=== PATIENT | male | born 1980 | race African-American/Black ===

== ENCOUNTER 2025-04-05 16:46 | Emergency (ER) | payer OTHER, SELFPAY ==
--- NOTE | ~2025-04-05 | XR_ITS ---
EXAMINATION: XR toe 2nd RT min 2V, 04/05/2025 17:06 DIRECTOR BROADCAST HISTORY: injury COMPARISON: No comparisons available. Findings: There is a slightly displaced fracture of the proximal aspect of the distal phalanx with intra-articular extension No significant degenerative changes. Soft tissues unremarkable. Impression: Fracture detailed above Reviewed, dictated and finalized at location P. CTOR BROADCAST Impression: Fracture detailed above
[2025-04-05 16:51] VITALS: BP 203/109; PULSE 113; RESP 16; TEMP 36.5; O2SAT 100
--- NOTE | 2025-04-05 17:49 | ED.LOWEXIN ---
HPI - Extremity Injury (Lower) General Chief Complaint: Extremity Injury, Lower Stated Complaint: Right 2nd toe injury Time Seen by Provider: 04/05/25 17:53 Source: patient Mode of arrival: ambulatory Limitations: no limitations History of Present Illness HPI Narrative: This is a 45-year-old male that presents to the emergency department for right 2nd toe injury. Reports he missed a step and injured the toe. He did not hit his head or lose consciousness. No other injuries or focal areas of pain. Related Data Allergies Allergy/AdvReac Type Severity Reaction Status Date / Time No Known Allergies Allergy Verified 04/05/25 17:52 Review of Systems Review of Systems: All systems reviewed & are unremarkable except as noted in HPI and below Exam Narrative: GENERAL: Well-appearing, well-nourished, and in no acute distress. HEAD: Normocephalic, atraumatic. EYES: EOMI. EXTREMITIES: No obvious deformity. Edema to the 2nd toe distal phalanx. SKIN: Warm, dry, no rash. NEURO: No focal deficits. Alert and oriented x3. PSYCH: Normal mood and affect Course Vital Signs Vital signs: Vital Signs Temperature 97.7 F 04/05/25 16:51 Pulse Rate 113 H 04/05/25 16:51 Respiratory Rate 16 04/05/25 16:51 Blood Pressure 203/109 H 04/05/25 16:51 Pulse Oximetry 100 04/05/25 16:51 Temperature 97.7 F 04/05/25 16:51 Pulse Rate 111 H 04/05/25 17:55 Respiratory Rate 18 04/05/25 17:55 Blood Pressure 172/112 H 04/05/25 17:55 Pulse Oximetry 99 04/05/25 17:55 Procedures Orthopedic Splinting/Casting Injury #1: Splinting/Casting Date: 04/05/25 Side: right Lower Extremity Injury Location: toe Lower Extremity Immobilizer: caryn tape Pre-Procedure Neuro Vascular Exam: normal Post-Procedure Neuro Vascular Exam: normal Other Orthopedic Equipment: other (Postop shoe) MDM - Extremity Injury (Lower) MDM Narrative Medical decision making narrative: Patient presents to the emergency department for right 2nd toe injury. X-ray showing distal phalanx fracture. Patient caryn taped and given postop shoe. Will be given follow-up with Podiatry Differential Diagnosis Differential diagnosis: Likely fracture of toe and other (Contusion) Imaging Data Radiologist's impression: ITS Impressions Toe X-Ray 04/05/25 17:18 Impression: Fracture detailed above Critical Care Time Critical Care Time Critical Care Time: No Discharge Plan Discharge Clinical Impression: Elevated blood pressure reading Fracture of toe Qualifiers: Encounter type: initial encounter Toe: unspecified toe Fracture type: closed Fracture alignment: displaced Laterality: right Qualified Code(s): S92.911A - Unspecified fracture of right toe(s), initial encounter for closed fracture Patient Disposition: Home Condition: Stable Instructions: Toe Fracture (ED), Hypertension (ED) Additional Instructions: Return to the ER if you experience fever, redness and swelling of your extremity, numbness or any other symptoms that are concerning to you Caryn tape the toe. Ice and elevate extremity. [id number] pain medication as needed. Prescribed pain medication as needed Follow up with Podiatry for further care. Your blood pressure is elevated today. You need to see a primary doctor for follow-up Patient Language: Ghanaian Prescriptions: New hydrocodone-acetaminophen 5-325 mg tablet 1 tablet PO Q6H PRN (Reason: pain) Qty: 14 0RF Follow-up/Referrals: Alana Garcia DPM [Physician, Podiatry] PHYSICIAN,PASSENGER LOCOMOTIVE ENGINEER [Primary Care Provider, Internal Medicine] Prashant Suarez MD [Physician, Family Practice]
[2025-04-05 17:55] VITALS: BP 172/112; PULSE 111; RESP 18; O2SAT 99
--- OUTSIDE RECORDS SUMMARY | 2025-04-05 18:32 | XMS_ITS | Clinical Summary ---
Author Organization [facility] [employer] Address [address] [place] [address] Care Team Providers Care Scooping Machine Tender Name Role Phone Unavailable Primary Care Provider Unavailabl e Source Comments [facility],non-owned Affiliates and Associated Physician Practices is amultiple site organization consisting of ambulatory clinics and hospital sitesin [place], [place], [place] and [place]. This disclosure is being madepursuant to the Care Everywhere program and may not contain all information available regarding this patient. Last updated 18.[facility] [employer] Allergies Active Allergy Reactions Criticality Noted Date Comments Cyclobenzaprine GI Discomfort 12/12/2020 Vomiting and headache Methocarbamol Psychiatric Medium 10/24/2020 halucinations Medications * Be aware that medications may not be up to date on this document. Always verify current medications with the patient. 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 Gender Identity Not on file Sexual Orientation Not on file Last Filed Vital Signs Vital Sign Reading Time Taken Comments Blood Pressure 143/84 11/29/2020 12:44 PM CDT Pulse 90 11/29/2020 12:44 PM CDT Temperature 36.9 C (98.5 F) 11/29/2020 8:37 AM CDT Respiratory Rate 18 11/29/2020 12:44 PM CDT Oxygen Saturation 98% 11/29/2020 12:44 PM CDT Inhaled Oxygen Concentration - - Weight 61.2 kg (135 lb) 12/12/2020 2:42 PM CDT Height 175.3 cm (5' 9) 12/12/2020 2:42 PM CDT Body Mass Index 19.94 12/12/2020 2:42 PM CDT Plan of Treatment Health Maintenance Due Date Last Done Comments COLOGUARD (AGES 45-75) - COL ON CA SCREENING 1979 COLON MONITORING 1979 COLONOSCOPY - COLON CA SCREENING 1979 CT COLONOGRAPHY - COLON CA SCREENING 1979 Colorectal Cancer Screening 1979 FIT - COLON CA SCREENING 1979 FLEX SIG - COLON CA SCREENING 1979 LIPID TESTING 1979 HIV SCREENING 1994 HEPATITIS C SCREENING 02/19/1997 DTAP/TDAP/TD VACCINES (1 - Tdap) 1998 HEPATITIS B VACCINE (1 of 3 - 19+ 3-dose series) 1998 DEPRESSION SCREENING 05/13/2024 COVID-19 VACCINE (1 - 2024-2 6 season) 2025 INFLUENZA VACCINE (#1) 2025 ZOSTER VACCINE (1 of 2) 2029 HIB VACCINE Aged Out No longer eligi ble based on patient's age to complete this topic HPV VACCINE Aged Out No longer eligi ble based on patient's age to complete this topic MENINGOCOCCAL (Group B) VACC INE SHARED DECISION-MAKING Aged Out No longer eligibl e based on patient's age to complete this topic MENINGOCOCCAL GROUPS A/C/Y/W VACCINE Aged Out No longer eligible b ased on patient's age to complete this topic PNEUMOCOCCAL VACCINE Aged Out No long er eligible based on patient's age to complete this topic Insurance [employer] [address]
--- OUTSIDE RECORDS SUMMARY | 2025-04-05 18:32 | XMS_ITS | Encounter Summary ---
Author Organization [facility] Address [address] [place] [address] Care Team Providers Care Major Donor Coordinator Name Role Phone Unavailable Primary Care Provider Unavailabl e Encounter Details Date Type Department Care Team (Late st Contact Info) Description 10/25/2020 Telephone [facility] [address] [place] [address] Grazyna Mercado PA No Information available Social History Tobacco Use Types Packs/Day Years Used Date Smoking Tobacco: Every Day Cigars Smokeless Tobacco: Never Comments:2 per day Alcohol Use Standard Drinks/Week Comments Yes 4 (1 standard drink = 0.6 oz pur e alcohol) Couple times a week Sex and Gender Information Value Date Recorded Sex Assigned at Not on file 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
--- OUTSIDE RECORDS SUMMARY | 2025-04-05 18:32 | XMS_ITS | Clinical Summary ---
Author Organization [facility] Address [address] [place] [address] Care Team Providers Care Wall Insulation Sprayer Name Role Phone Teodora Jerome Primary Care Provider [phone] Allergies Active Allergy Reactions Criticality Noted Date Comments Cyclobenzaprine GI Upset 12/12/2020 Vomiting and headache Methocarbamol Hallucinations Medium 10/24/2020 halucinations Medications Naproxen Sodium (ALEVE OR) Active Active Problems Problem Noted Date Diagnosed Date Body mass index (BMI) of 20.0-20.9 in adult 11/2022 Cigar smoker 04/18/2023 Elevated blood pressure read ing in office with white coat syndrome, without diagnosis of hypertension 04/18/2023 Proteinuria, unspecified type 04/18/2023 Family history of diabetes mellitus (DM) 023 Vitamin D deficiency, unspecified 04/18/2023 Chronic bilateral low back pain 03/09/2021 Encounters Date Type Department Care Team Description 03/08/2025 Results Follow-Up [facility] [address] [phone] Teodora Jerome FNP PROSTATE SPECIFIC ANTIGEN,SCREENING, MAGNESIUM, FOLIC ACID SERUM, Additional followed-up results: 8 02/08/2025 3:20 PM CDT Office Visit [facility] [address] [phone] Teodora Jerome FNP Physical (Patient presenting to the office today for routine physical - reports no new concerns ) 02/08/2025 Travel from Last 3 Months Immunizations Immunization Administration Dates Next Due Dtp 10/05/1983,09/10/1980,1979 ,1979,1979 MMR 12/12/1992,06/03/1980 Opv 10/05/1983,09/10/1980,1979 ,1979,1979 Polio Opv (Generic) 10/05/1983,09/10/1980,1979,1979,1979 Family History Medical History Relation Comments Alcohol Abuse Father Diabetes Mother Relation Status Comments Father Mother Alive Social History Tobacco Use Types Packs/Day Years Used Date Smoking Tobacco: Every Day Cigarettes 0.5 25 Cigars Smokeless Tobacco: Never Tobacco Cessation:Ready to Q uit: Yes; Counseling Given: Yes Comments:Patient is kind of ready to quit but not fully (02/08/2025) Alcohol Use Standard Drinks/Week Comments Yes 8.3 (1 standard drink = 0.6 oz p ure alcohol) OCCASIONALLY PHQ-2 Answer Date Recorded Patient Health Questionnaire-2 Score 0 02/08/2025 Sex and Gender Information Value Date Recorded Sex Assigned at Male 02/08/2025 3:23 PM CDT Legal Sex Male 8:24 PM CDT Gender Identity Not on file Sexual Orientation Not on file Last Filed Vital Signs Vital Sign Reading Time Taken Comments Blood Pressure 164/98 02/08/2025 3:56 PM CDT Pulse 113 02/08/2025 3:30 PM CDT Temperature 37.5 C (99.5 F) 02/08/2025 3:30 PM CDT Respiratory Rate 18 02/08/2025 3:30 PM CDT Oxygen Saturation 98% 02/08/2025 3:30 PM CDT Inhaled Oxygen Concentration - - Weight 53.8 kg (118 lb 9.6 oz) 02/08/2025 3:30 P M CDT Height 172.7 cm (5' 8) 02/08/2025 3:30 PM CDT Body Mass Index 18.03 02/08/2025 3:30 PM CDT Plan of Treatment Upcoming Encounters Date Type Department Care Team (Late st Contact Info) Description 04/09/2025 7:40 AM MARINE OPERATIONS COORDINATOR Laboratory Only [facility] Family & Internal Medicine - [address] [phone] Teodora Jerome, PAPER MACHINE OPERATOR [address] [place] [address] Health Maintenance Due Date Last Done Comments Hepatitis B Vaccines (1 of 3 - 19+ 3-dose series) 1998 Annual Physical 04/18/2024 04/18/2023, 02/06/2021 Influenza Adult (#1) 2025 Colorectal Cancer Screening Colonoscopy (10 Years) 08/08/2025 Postponed from 1979 (Patient Refused) COVID-19 Vaccine (3 - season) 2026 04/29/2021, 04/08/2021 Postponed from 01/11/2025 (Future Appointment) DTaP, Tdap and Td Vaccines (1 - Tdap) 02/08/2026 10/05/1983, 09/10/1980, 1979, Additional history exists Postponed from 1998 (Patient Refused) Pneumococcal Vaccine: Pediatrics (0 to 5 Years) and At-Risk Patients (6 to 49 Years) (1 of 2 - PCV) 02/08/2026 Postponed from 1998 (Patient Refused) Hepatitis C Completed 04/30/2023 PHQ-2 (Physician [place]) Completed 02/08/2025 Hepatitis A Vaccines Aged Out No long er eligible based on patient's age to complete this topic Meningococcal B Vaccine Aged Out No l onger eligible based on patient's age to complete this topic Meningococcal Vaccine Aged Out No blayne tyrel eligible based on patient's age to complete this topic RSV Immunizations Under 20 Months Aged Out No longer eligible based on patient's age to complete this topic Procedures Procedure Name Priority Date/Time Associated Diagnosis Comments CBC W/DIFF AUTOMATED Routine 03/06/2025 10:14 AM CDT Elevated blood pressure reading in office with white coat syndrome, without diagnosis of hypertension Underweight with body mass index (BMI) less than 18.5 TSH W/REFLEX Routine 03/06/2025 10:14 AM CDT Elevated blood pressure reading in office with white coat syndrome, without diagnosis of hypertension Underweight with body mass index (BMI) less than 18.5 LIPID PANEL Routine 03/06/2025 10:14 AM CDT Elevated blood pressure reading in office with white coat syndrome, without diagnosis of hypertension Underweight with body mass index (BMI) less than 18.5 VITAMIN D, 25 OH Routine 03/06/2025 10:1 4 AM CDT Vitamin D deficiency, unspecified URIC ACID BLOOD Routine 03/06/2025 10:14 AM CDT Elevated blood pressure reading in office with white coat syndrome, without diagnosis of hypertension Underweight with body mass index (BMI) less than 18.5 COMPREHENSIVE METABOLIC PANEL Routine 03/06/2025 10:14 AM CDT Elevated blood pressure reading in office with white coat syndrome, without diagnosis of hypertension Underweight with body mass index (BMI) less than 18.5 MAGNESIUM Routine 03/06/2025 10:14 AM CDT Elevated blood pressure reading in office with white coat syndrome, without diagnosis of hypertension PROSTATE SPECIFIC ANTIGEN,SCREENING Routine 03/06/2025 10:14 AM CDT Encounter for screening prostate specific antigen (PSA) measurement URINALYSIS Routine 03/06/2025 10:12 AM CDT Elevated blood pressure reading in office with white coat syndrome, without diagnosis of hypertension Underweight with body mass index (BMI) less than 18.5 VITAMIN B-12 Routine 03/06/2025 10:12 AM CDT Elevated blood pressure reading in office with white coat syndrome, without diagnosis of hypertension FOLIC ACID SERUM Routine 03/06/2025 10:1 2 AM CDT Elevated blood pressure reading in office with white coat syndrome, without diagnosis of hypertension HEPATITIS C ANTIBODY Routine 04/30/2023 8:03 AM MARINE OPERATIONS COORDINATOR Encounter for hepatitis C screening test for low risk patient from Last 3 Months or Most Recently Relevant to Health Maintenance Results * (ABNORMAL) TSH W/REFLEX (03/06/2025 10:14 AM CDT) TSH 0.16(L) 0.40 - 4.50 mIU/L [facility] FREE T4 1.0 0.8 - 1.8 ng/dL [facility] [employer] [facility] 03/06/2025 10:1 4 AM CDT 03/06/2025 10:15 AM CDT Narrative Resulting Agency Comment Performing Organization Information: Site ID: MAIN Name: [facility] Address: [address] [place] [address] Director: Keke Block MD Teodora Jerome [facility] Final Result STEPHANI GUERRERO [facility] [id number] [place] [address] [place] [address], * PROSTATE SPECIFIC ANTIGEN,SCREENING (03/06/2025 10:14 AM CDT) Pathologist [facility] PSA TOTAL 0.87 < OR = 2.50 ng/mL [facility] [employer] [facility] Comment: The total PSA value from this assay system is standardized against the WHO standard. The test result will be approximately 20% lower when compared to the equimolar-standardized total PSA (Sherine Jacklyn). Comparison of serial PSA results should be interpreted with this fact in mind. This test was performed using the Siemens chemiluminescent method. Values obtained from different assay methods cannot be used interchangeably. PSA levels, regardless of value, should not be interpreted as absolute evidence of the presence or absence of disease. 03/06/2025 10:1 4 AM CDT 03/06/2025 10:15 AM CDT Narrative Resulting Agency Comment Performing Organization Information: Site ID: MAIN Name: [facility] Address: [address] [place] [address] Director: Keke Block MD Teodora Jerome [facility] Final Result [facility] [place] [address] [place] [address], [place] * (ABNORMAL) COMPREHENSIVE METABOLIC PANEL (03/06/2025 10:14 AM CDT) GLUCOSE 74 65 - 99 mg/dL [employer] [facility] Comment: Fasting reference interval BUN 12 7 - 25 mg/dL [employer] [facility] CREATININE S/P/B 0.94 0.60 - 1.29 mg/dL [employer] GFR ESTIMATE 101 > OR = 60 mL/min/1. 73m2 [employer] BUN CREATININE RATIO SEE NOTE: 6 - (calc) [employer] Comment: Not Reported: BUN and Creatinine are within reference range. SODIUM S/P/B 144 135 - 146 mmol/L [facility] POTASSIUM S/P/B 3.5 3.5 - 5.3 mmol/L [employer] CHLORIDE S/P/B 101 98 - 110 mmol/L [employer] CO2 33(H) 20 - 32 mmol/L [facility] CALCIUM S/P/B 9.4 8.6 - 10.3 mg/dL [facility] TOTAL PROTEIN S/P/B 7.4 6.1 - 8.1 g/dL [facility] ALBUMIN S/P/B 4.7 3.6 - 5.1 g/dL [facility] GLOBULIN 2.7 1.9 - 3.7 g/dL (calc) [facility] ALBUMIN/GLOBULI N RATIO 1.7 1.0 - 2.5 (calc) [facility] BILIRUBIN TOTAL S/P/B 0.3 0.2 - 1.2 mg/dL [facility] ALKALINE PHOSPHATASE S/P/B 38 36 - 130 U/L [employer] AST 18 10 - 40 U/L [facility] ALT 7(L) 9 - 46 U/L [facility] 03/06/2025 10:1 4 AM CDT 03/06/2025 10:15 AM CDT Narrative Resulting Agency Comment Performing Organization Information: Site ID: MAIN Name: [facility] [facility] Address: [address] [place] [address] Director: Keke Block MD us Teodora Kilzer PAPER MACHINE OPERATOR LABORATORY Final Result Performing Organization Address City/[facility]/ZIP Co de Phone Number STEPHANI GUERRERO [facility] [address] [place] [address], * (ABNORMAL) LIPID PANEL (03/06/2025 10:14 AM CDT) CHOLESTEROL 209(H) <200 mg/dL [facility] HDL 100 > OR = 40 mg/dL [facility] TRIGLYCERIDES 64 <150 mg/dL [facility] LDL (CALCULATED) 94 mg/dL (calc) [facility] Comment: Reference range: <100 Desirable range <100 mg/dL for primary prevention; <70 mg/dL for patients with CHD or diabetic patients with > or = 2 CHD risk factors. LDL-C is now calculated using the Azucena calculation, which is a validated novel method providing better accuracy than the Friedewald equation in the estimation of LDL-C. Lenny SS et al. MARCIANO. 2013;310(19): 7386-9951 (http://education.[employer]/faq/SCU155) CHOL/HDL RATIO 2.1 <5.0 (calc) [facility] NON HDL CHOLESTEROL 109 <130 mg/dL (calc) [facility] Comment: For patients with diabetes plus 1 major ASCVD risk factor, treating to a non-HDL-C goal of <100 mg/dL (LDL-C of <70 mg/dL) is considered a therapeutic option. 03/06/2025 10:1 4 AM CDT 03/06/2025 10:15 AM CDT Narrative Resulting Agency Comment Performing Organization Information: Site ID: MAIN Name: Stephani Rendon Address: [place] [address] Director: Keke Block MD Teodora Jerome PAPER MACHINE OPERATOR LABORATORY Final Result Performing Organization Address City/[facility]/ZIP Co de Phone Number STEPHANI GUERRERO [employer] [facility] [address] [place] [address], * (ABNORMAL) CBC W/DIFF AUTOMATED (03/06/2025 10:14 AM CDT) WBC 3.8 3.8 - 10.8 Thousand/ uL [facility] RBC 4.37 4.20 - 5.80 Million/u L [facility] HGB 13.5 13.2 - 17.1 g/dL [facility] HCT 41.3 38.5 - 50.0 % [facility] MCV 94.5 80.0 - 100.0 fL [facility] MCH 30.9 27.0 - 33.0 pg [facility] MCHC 32.7 32.0 - 36.0 g/dL [facility] Comment: For adults, a slight decrease in the calculated MCHC value (in the range of 30 to 32 g/dL) is most likely not clinically significant; however, it should be interpreted with caution in correlation with other red cell parameters and the patient's clinical condition. RDW 13.1 11.0 - 15.0 % [facility] PLT 167 140 - 400 Thousand/ uL [facility] MPV 11.0 7.5 - 12.5 fL [facility] ABS. NEUTROPHILS 1,273(L) 1,500 - 7,800 cells/uL [facility] ABS. LYMPHOCYTES 1,737 850 - 3,900 cells/uL [facility] ABS. MONOCYTES 597 200 - 950 cells/uL [facility] ABS. EOSINOPHILS 152 15 - 500 cells/uL [facility] ABS. BASOPHILS 42 0 - 200 cells/uL [facility] SEG NEUTROPHILS 33.5 % [facility] LYMPHOCYTES 45.7 % [facility] MONOCYTES 15.7 % [facility] EOSINOPHILS 4.0 % [facility] BASOPHILS 1.1 % [facility] 03/06/2025 10:1 4 AM CDT 03/06/2025 10:15 AM CDT Narrative Resulting Agency Comment Performing Organization Information: Site ID: [place] Name: [facility] Address: [address] [place] [address] Director: Keke Block MD Teodora Jerome PAPER MACHINE OPERATOR LABORATORY Final Result Performing Organization Address [facility] Co de Phone Number [facility] [place] [employer] [facility] [address] [place] [address], * (ABNORMAL) VITAMIN D, 25 OH (03/06/2025 10:14 AM CDT) VITAMIN D 25 HYDROXY TOTAL S/P/B 13(L) 30 - 100 ng/mL [employer] Comment: Vitamin D Status 25-OH Vitamin D: Deficiency: <20 ng/mL Insufficiency: 20 - 29 ng/mL Optimal: > or = 30 ng/mL For 25-OH Vitamin D testing on patients on D2-supplementation and patients for whom quantitation of D2 and D3 fractions is required, the QuestAssureD(TM) 25-OH VIT D, (D2,D3), LC/MS/MS is recommended: order code 35377 (patients >2yrs). See Note 1 Note 1 For additional information, please refer to http://education.[employer]/faq/PJR649 (This link is being provided for informational/ educational purposes only.) 03/06/2025 10:1 4 AM CDT 03/06/2025 10:15 AM CDT Narrative Resulting Agency Comment Performing Organization Information: Site ID: MAIN Name: [facility] Address: [address] [place] [phone] Director: Keke Block MD Teodora Beaulieuruthy [facility] Final Result Performing Organization Address City/[facility]/ZIP Co de Phone Number [facility] [place] [employer] [facility] [id number] [place] [address], * MAGNESIUM (03/06/2025 10:14 AM CDT) MAGNESIUM 1.8 1.5 - 2.5 mg/dL [employer] 03/06/2025 10:1 4 AM CDT 03/06/2025 10:15 AM CDT Narrative Resulting Agency Comment Performing Organization Information: Site ID: MAIN Name: [facility] Address: [address] [place] [phone] Director: Keke Block MD Teodora Kilzer PAPER MACHINE OPERATOR LABORATORY Final Result Performing Organization Address [facility] Co de Phone Number STEPHANI CARY - [facility] [id number] [place] [address], * URIC ACID BLOOD (03/06/2025 10:14 AM CDT) URIC ACID 6.1 4.0 - 8.0 mg/dL [employer] [facility] Comment: Therapeutic target for gout patients: <6.0 mg/dL 03/06/2025 10:1 4 AM CDT 03/06/2025 10:15 AM CDT Narrative Resulting Agency Comment Performing Organization Information: Site ID: MAIN Name: [facility] Address: [address] [place] [phone] Director: Keke Block MD [facility] Final Result Performing Organization Address [facility] de Phone Number [facility] [address] [address], * (ABNORMAL) URINALYSIS (03/06/2025 10:12 AM CDT) COLOR (U) YELLOW YELLOW [facility] APPEARANCE SEMEN CLEAR CLEAR [facility] SPECIFIC GRAVITY (U) 1.021 1.001 - 1.035 [facility] PH (U) 6.5 5.0 - 8.0 [facility] URINE GLUCOSE NEGATIVE NEGATIVE [facility] KETONE (U) NEGATIVE NEGATIVE [facility] BLOOD (U) NEGATIVE NEGATIVE [facility] PROTEIN (U) 1+(A) NEGATIVE [facility] URINE SPECIMEN OBTAINED BY CLEAN CATCH PROCEDURE / Unknown 03/06/2025 10:12 AM CDT 03/06/2025 10:13 AM CDT Narrative Resulting Agency Comment Performing Organization Information: Site ID: [facility] Address: [address] [place] [phone] Director: Keke Block MD us Teodora Kilzer PAPER MACHINE OPERATOR URINE ORDERABLES Final Result Performing Organization Address City/[facility]/ZIP Co de Phone Number [facility] [place] [facility] [id number] [place] [address], * VITAMIN B-12 (03/06/2025 10:12 AM CDT) [facility] VITAMIN B12 S/P/B 440 200 - 1,100 pg/mL [facility] 03/06/2025 10:1 2 AM CDT 03/06/2025 10:13 AM CDT Narrative Resulting Agency Comment Performing Organization Information: Site ID: [facility]IN [facility] Address: [address] [place] [phone] Director: Keke Block MD us Teodora Kilzer PAPER MACHINE OPERATOR LABORATORY Final Result Performing Organization Address [facility] Co de Phone Number [employer] [address] [address], [place] * (ABNORMAL) FOLIC ACID SERUM (03/06/2025 10:12 AM CDT) [facility] FOLATE 5.3(L) ng/mL [facility] Comment: Reference Range Low: <3.4 Borderline: 3.4-5.4 Normal: >5.4 03/06/2025 10:1 2 AM CDT 03/06/2025 10:13 AM CDT Narrative Resulting Agency Comment Performing Organization Information: Site ID: [facility]IN [facility] Address: [address] [place] [phone] Director: Keke Block MD us Teodora Kilzer PAPER MACHINE OPERATOR LABORATORY Final Result Performing Organization Address City/[facility] Co de Phone Number [facility] - [facility] [address] [address], * HEPATITIS C ANTIBODY ([facility] ONLY) (04/30/2023 8:03 AM MARINE OPERATIONS COORDINATOR) HEPATITIS C AB NON-REACTI VE NON-REACT JAN 04/30/2023 6:56 PM MARINE OPERATIONS COORDINATOR [facility] Comment: ANTIBODIES TO HCV NOT DETECTED. DOES NOT EXCLUDE THE POSSIBILITY OF EXPOSURE TO HCV. 04/30/2023 8:03 AM MARINE OPERATIONS COORDINATOR Teodora NI LABORATORY Final Result [facility] [address] [place] [address], [id number] from Last 3 Months or Most Recently Relevant to Health Maintenance Care Teams Wall Insulation Sprayer Relationship Specialty Start Date End Date Teodora Jerome FNP [address] [place] [phone] PCP - General Nurse Practitioner Family 04/08/23
--- OUTSIDE RECORDS SUMMARY | 2025-04-05 18:32 | XMS_ITS | Encounter Summary ---
Author Organization [facility] Address [address] [place] [address] Care Team Providers Care Hat Block Bench Hand Name Role Phone Teodora Jerome Primary Care Provider [phone] Reason for Visit * Reason Onset Date Comments Lab Results 03/08/2025 Encounter Details Date Type Department Care Team (Late st Contact Info) Description 03/08/2025 Results Follow-Up [facility] Family & Internal Medicine - [place] [address] [place] [address] Teodora Jerome FNP [address] [place] [address] PROSTATE SPECIFIC ANTIGEN,SCREENING, MAGNESIUM, FOLIC ACID SERUM, Additional followed-up results: 8 Social History Tobacco Use Types Packs/Day Years Used Date Smoking Tobacco: Every Day Cigarettes 0.5 25 Cigars Smokeless Tobacco: Never Comments:Patient is kind of ready to quit [...] on file Sexual Orientation Not on file documented as of this encounter Progress Notes * Kadie Ayers/31/2025 1:39 PM CDT Patient called in, no one available, asking for call back. * Mercy Angel - 03/11/2025 3:08 PM CDT Patient returned call no one available stated okay to call him back. * RAINE Bell - 03/08/2025 10:23 AM CDT His labs show vitamin D is low and he should resume or increase his D3 supplementing daily He should continue working on a heart healthy diet TSH is a little bit low and we will continue to monitor this, lets recheck this TSH with reflex to free T4 in 1 month His folic acid is low and he should be taking a daily folic acid supplement of at least 1 mg or a daily multiple vitamin with B12 and folic acid in it PSA looks good Other labs look good documented in this encounter Plan of Treatment Upcoming Encounters Date Type Department Care Team (Late st Contact Info) Description 04/09/2025 7:40 AM ARTIST WOODBLOCK Laboratory Only [facility] Family & Internal Medicine - [address] [phone] Teodora Jerome FNP [address] [place] [address] Scheduled Orders Name Type Priority Associated Diagnoses Orde r Schedule THYROID STIM HORMONE TSH Lab Routine Abnormal TSH Expected: 04/09/2025, Expires: 04/09/2026 THYROXINE, FREE (FT4) Lab Routine Abnormal TSH Expected: 04/09/2025, Expires: 04/09/2026 documented as of this encounter Visit Diagnoses Diagnosis Abnormal TSH- Primary Other abnormal clinical finding documented in this encounter Additional Health Concerns Assessment Noted Time PHQ-9 Depression Total Score: 0 04/18/20 23 10:26 AM ARTIST WOODBLOCK documented as of this encounter Care Teams Hat Block Bench Hand Relationship Specialty Start Date End Date Teodora Jerome FNP [address] [place] [address] PCP - General Nurse Practitioner Family 04/08/23 documented as of this encounter
== END 2025-04-05 18:12 | disposition home or self-care (01) ==
LOC: ANHED 18:06
PROVIDERS: Emergency Provider Physician Assistant
DX: S92.911A Unspecified fracture of right toe(s), initial encounter for closed fracture (principal); W22.09XA Striking against other stationary object, initial encounter; R03.0 Elevated blood-pressure reading, without diagnosis of hypertension
CPT/HCPCS: 73660; 99284